=== PATIENT | male | born 1985 | race Caucasian/White ===

== ENCOUNTER 2022-01-03 11:16 | Emergency (ER) | payer SELFPAY ==
[2022-01-03 11:29] VITALS: BP 146/89; PULSE 93; RESP 15; TEMP 36.6; O2SAT 98; BMI 24.7
--- NOTE | 2022-01-03 11:32 | DI.RAD.S_ITS ---
PROCEDURE: XR ELBOW LT MIN 3V INDICATIONS: elbow injury TECHNIQUE: 3 views of the elbow were acquired. COMPARISON: None. FINDINGS: Bones: No fractures or dislocations. No suspicious bony lesions. Large olecranon bone spur. Soft tissues: No elbow joint effusion. No suspicious soft tissue calcifications. IMPRESSION: No fracture. No acute osseous lesion. If symptoms and/or clinical suspicion for pathology persists, further assessment with repeat radiographs (7-10 days) or advanced imaging (e.g. CT, MRI or bone scan) should be considered. Dictated by: Darlene Macias MD, PhD on 01/03/2022 at 11:42 Approved by: Darlene Macias MD, PhD on 01/03/2022 at 11:43
--- NOTE | 2022-01-03 14:13 | PC.NURSE ---
Unable to locate pt in lobby
--- NOTE | 2022-01-03 14:53 | ED_ITS ---
HPI - Extremity Injury (Upper) <IDALIA Rainey - Last Filed: 01/03/22 19:20> General Chief Complaint: Extremity Injury, Upper Stated Complaint: fell and needs xray on elbow Time Seen by Provider: 01/03/22 14:51 Source: patient Mode of arrival: Ambulatory History of Present Illness HPI narrative: This is a 36-year-old male who presents to the emergency department with left elbow pain after he fell onto his left elbow after tripping approximately 1 hour prior to arrival, full range of motion is intact without any sensation changes distally. Patient has a small abrasion on his elbow, no surroundings swelling, redness, wrist or shoulder pain. He denies any weakness in his arm, denies any pain with movement of his shoulder. States that his left elbow is most painful with full extension but otherwise is tolerable. He has not had any medications prior to his arrival, states that his last tetanus within 10 years. Denies any allergies. Related Data Allergies Allergy/AdvReac Type Severity Reaction Status Date / Time No Known Drug Allergies Allergy Verified 01/03/22 11:29 Review of Systems <IDALIA Rainey - Last Filed: 01/03/22 19:20> Review of Systems Narrative: General: denies fever, chills Head/Neck: denies headache, neck pain Eyes: denies visual changes, eye pain Cardio: denies chest pain, palpitations Respiratory: denies shortness of breath, cough GI: denies abdominal pain, nausea, vomiting, or diarrhea : denies dysuria, hematuria or flank pain MSK endorses left elbow pain, denies muscle weakness or swelling Skin: denies rash, itching or wound Neuro: denies numbness, tingling, dizziness Patient History <IDALIA Rainey - Last Filed: 01/03/22 19:20> Social History Smoking Status: Current every day smoker Smoking Status: Current every day smoker alcohol intake frequency: holidays/special occasions only Substance Use Type: marijuana Exam <IDALIA Rainey Last Filed: 01/03/22 19:20> Narrative Exam Narrative: Independently reviewed vitals signs and nursing notes. General: cooperative, comfortable, in no acute distress, well groomed Head: atraumatic, symmetrical facial expressions Neck: supple Eyes: equal round and reactive, EOMI, conjunctiva normal Nose: nares patent, no rhinorrhea Mouth/Throat: moist mucus membranes Cardiovascular: regular rate and rhythm, no peripheral edema, warm extremities MSK: moves all extremities, neurovascularly intact, no weakness, normal tone, left elbow with mild abrasion over the olecranon process, no palpable fluid col lection, full extension and flexion intact without crepitus, edema, surrounding erythema. Patient was fitted in a sling for comfort Skin: brisk capillary refill, no rash, no erythema Neuro: normal speech and cognition, A&O x3 Psych: mental status is grossly normal, congruent mood, normal affect, pleasant and cooperative Initial Vital Signs Initial Vital Signs: Vital Signs Temperature 97.8 F 01/03/22 11:29 Pulse Rate 93 H 01/03/22 11:29 Respiratory Rate 15 01/03/22 11:29 Blood Pressure 146/89 H 01/03/22 11:29 Pulse Oximetry 98 01/03/22 11:29 Oxygen Delivery Method 01/03/22 11:29 <Geetha Irby DO - Last Filed: 01/11/22 18:38> Initial Vital Signs Initial Vital Signs: Vital Signs Temperature 97.8 F 01/03/22 11:29 Pulse Rate 93 H 01/03/22 11:29 Respiratory Rate 15 01/03/22 11:29 Blood Pressure 146/89 H 01/03/22 11:29 Pulse Oximetry 98 01/03/22 11:29 Oxygen Delivery Method 01/03/22 11:29 Procedures <IDALIA Rainey - Last Filed: 01/03/22 19:20> Orthopedic Splinting/Casting Injury #1: Side: left Upper Extremity Injury Location: elbow Upper Extremity Immobilizer: sling/shoulder immobilizer Post splinting neuro exam: intact Course <IDALIA Rainey - Last Filed: 01/03/22 19:20> Orders Ordered: Discontinued Medications Acetaminophen (Acetaminophen 325 Mg Tablet) 975 mg PO NOW ONE Stop: 01/03/22 14:59 Last Admin: 01/03/22 15:03 Dose: 975 mg Documented By: SHELLY Ketorolac Tromethamine (Ketorolac 30 Mg/Ml Vial) 30 mg IM NOW ONE Stop: 01/03/22 14:59 Last Admin: 01/03/22 15:03 Dose: 30 mg Documented By: SHELLY Vital Signs Vital signs: Vital Signs - 8 hr 01/03/22 11:29 01/03/22 15:00 Temperature 97.8 F 98 F Pulse Rate 93 H 75 Respiratory Rate 15 18 Blood Pressure 146/89 H 120/74 Pulse Oximetry 98 98 Oxygen Delivery Method Room Air Room Air <Geetha Irby DO - Last Filed: 01/11/22 18:38> Orders Ordered: Discontinued Medications Acetaminophen (Acetaminophen 325 Mg Tablet) 975 mg PO NOW ONE Stop: 01/03/22 14:59 Last Admin: 01/03/22 15:03 Dose: 975 mg Documented By: SHELLY Ketorolac Tromethamine (Ketorolac 30 Mg/Ml Vial) 30 mg IM NOW ONE Stop: 01/03/22 14:59 Last Admin: 01/03/22 15:03 Dose: 30 mg Documented By: SHELLY Vital Signs Vital signs: Vital Signs - 8 hr 01/03/22 11:29 01/03/22 15:00 Temperature 97.8 F 98 F Pulse Rate 93 H 75 Respiratory Rate 15 18 Blood Pressure 146/89 H 120/74 Pulse Oximetry 98 98 Oxygen Delivery Method Room Air Room Air MDM - Extremity Injury (Upper) <Chey Driver [facility] - Last Filed: 01/03/22 19:20> Imaging Data Extremity x-ray #1: Radiologist's Impression: PROCEDURE:? XR ELBOW LT MIN 3V ? INDICATIONS:? elbow injury ? TECHNIQUE:? 3 views of the elbow were acquired.? ? COMPARISON:? None. ? FINDINGS:? ? Bones:? No fractures or dislocations.? No suspicious bony lesions.? Large olecranon bone spur.? ? Soft tissues:? No elbow joint effusion.? No suspicious soft tissue calcifications.? ? ? IMPRESSION:? No fracture. No acute osseous lesion. If symptoms and/or clinical suspicion for pathology persists, further assessment with repeat radiographs (7-10 days) or advanced imaging (e.g. CT, MRI or bone scan) should be considered. ? ? Dictated by: Darlene Macias MD, PhD on 01/03/2022 at 11:42 ? ? Approved by: Darlene Macias MD, PhD on 01/03/2022 at 11:43 ? MDM Narrative Medical decision making narrative: This is a 36-year-old male who tripped and fell 1 hour prior to arrival comes to the emergency department for left elbow pain. X-rays negative for acute fracture osseous abnormality, patient has full range of motion without deficit or sensation changes. He does not have any fluctuance or palpable fluid collection over his olecranon. Patient was given Toradol in the emergency department and Tylenol, encouraged to ice, rest, keep in sling for as long as is painful. Patient was given [facility] phone number if he wishes to follow-up with them. Patient was given return precautions, states understanding, encouraged to wear his sling if movement exacerbates his pain. Patient is appropriate and amenable to discharge home. Vital signs are stable on repeat examination is unremarkable. Patient has been informed of results. Patient has been given strict return to ER precautions for any new or worsening symptoms. Patient understands to follow up closely with outpatient providers as instructed. Patient understands plan and agrees to discharge home. All questions and concerns answered at this time. Discharge Plan Departure Patient Disposition: Home Clinical Impression: Elbow injury Qualifiers: Encounter type: initial encounter Laterality: left Qualified Code(s): S59.902A - Unspecified injury of left elbow, initial encounter Instructions: DI for Elbow Pain Activity Restrictions/Additional Instructions: *You have been diagnosed with a left elbow injury without fracture. Please use ice, your sling, Tylenol and ibuprofen as needed for your pain. Please do not take any ibuprofen today since he received Toradol. Please use the sling to help reduce excessive use of your arm so it can heal. Please remember that a bone bruise or injury like this can take 2-4 weeks to heal. Please return to the emergency department or have this evaluated again if you are unable to fully extend your arm, have worsening pain or swelling. I hope you feel better soon, thank you for trusting us with your care, have a good rest of your day. *What to do: *Please continue to take your regular medications as directed. [ ] New medication prescriptions sent to your pharmacy: [ ] [ ] New medication written as a paper prescription [x ] No new medications given *Please follow up with your primary care provider in 2-3 days, call for an appointment. Let them know you were seen in the Emergency Department and that we asked that you be seen for follow-up. We will electronically transmit a record of today's note if your PCP is in our system *If you do not have a primary care provider please contact [phone] to establish care with one of the [facility] primary care providers. *Return to Emergency Department if you should have any new, worsening or concerning symptoms, such as [fever greater than 101F, chills, worsening pain, persistent vomiting or other bothersome symptoms] Referrals: [facility] [Provider Group] Visit Report Forms: Patient Portal/API <Geetha Irby DO - Last Filed: 01/11/22 18:38> Cosign ED Attending Aubreyature Attestation: I was immediately available in the department for consultation. Documentation has been reviewed. I agree with assessment and plan.
--- NOTE | 2022-01-03 14:58 | PC.NURSE ---
right hand pinkie finger, ring removed with [employer] ring cutter. small lac to top of finger, cleansed with soap and water. cms intact. ring given back to patient. left elbow swelling and small abrasion painful to rotate arm or unbend arm. sling placed. cms intact.
[2022-01-03 15:00] VITALS: BP 120/74; PULSE 75; RESP 18; TEMP 36.6; O2SAT 98
[2022-01-03] MEDS: ACETAMINOPHEN 325 MG TABLET 975 MG PO (15:03)
[2022-01-03] MEDS: KETOROLAC 30 MG/ML VIAL IM (15:03)
== END 2022-01-03 15:16 | disposition home or self-care (01) ==
PROVIDERS: Emergency Provider Nurse Practitioner Critical Care Medicine
DX: S59.902A Unspecified injury of left elbow, initial encounter (principal); W01.0XXA Fall on same level from slipping, tripping and stumbling without subsequent striking against object, initial encounter
CPT/HCPCS: 73080; 96372; 99283; 99284; J1885